=== PATIENT | female | born 1985 | race Hispanic/Latino ===

== ENCOUNTER 2025-05-13 21:14 | Inpatient (IN) | payer BC, SELFPAY ==
[2025-05-13] VITALS (22 sets, daily range): BP systolic 123–163; BP diastolic 70–115; BMI 39.7; BMI 37.7
[2025-05-13] MEDS: TRANDATE 10 MG IV (17:10)
[2025-05-13 17:17] LABS: Hematocrit 39.9 % (37.0-47.0); Hemoglobin 14.1 g/dL (12.0-16.0); Mean Corp Hgb Conc. 35.3 g/dL (33.0-37.0); Mean Corpuscular Volume 88.3 fL (81.0-99.0); Nucleated Red Blood Cells % 0 %; Platelet Count 284 10^3/uL (130-400); Red Cell Dist. Width 11.8 % (11.5-14.5)
--- NOTE | 2025-05-13 17:19 | EDRN ---
Assumed care of pt. in rm 18, pt. was unable to tell bartenders time of onset 'because I'm really not sure, a lot was going on'. pt. on telephone w/ currently, who clarified onset of symptoms began at 13:09 this afternoon. states he
witnessed pt. w/ sudden onset nausea/vomiting, rt. sided weakness to rt. upper extremity as well as decreased sensation to rt. side of face and to rt. arm. Pt. reports symptoms have somewhat resolved, but does endorse still feeling weak to rt. arm,
still endorses decreased sensation to rt. side of face and rt. arm and c/o headache. Pt. is hypertensive, does report hx. of same.
[2025-05-13 17:29] LABS: INR 0.88; PT 12.2 Sec (11.4-14.6)
[2025-05-13 17:30] LABS: APTT 23.3 Sec (23.4-35.0)
[2025-05-13 17:33] LABS: ALT (SGPT) 31 U/L (0-35); AST (SGOT) 26 U/L (14-36); Albumin 4.7 g/dl (3.5-5.0); Alkaline Phosphatase 97 U/L (38-126); Blood Urea Nitrogen 16 mg/dl (7-17); Calcium 9.6 mg/dl (8.4-10.2); Carbon Dioxide 28 mmol/L (22-30); Chloride 106 mmol/L (98-107); Glucose 101 mg/dl (70-99); Lipase 94 U/L (23-300); Potassium 3.9 mmol/L (3.5-5.1); Sodium 139 mmol/L (135-145); Total Protein 8.0 g/dl (6.3-8.2); eGFR > 60.00
--- NOTE | 2025-05-13 17:37 | ED.GENMED ---
History of Present Illness
General
Chief Complaint: Headache
Time Seen by Provider: 05/13/25 16:57
History of Present Illness
History of Present Illness:
39-year-old female with history of preeclampsia with last delivery in March 2024, presenting to the emergency department for headache and right sided weakness. Patient reports around 1 PM when she was out to [facility]. Notes weakness to the right upper
extremity and headache, also reports some tingling sensation to her right upper extremity. Denies any history of stroke. She reports since the preeclampsia issue, required emergent , and has since been on low-dose labetalol. She is
currently on 50 mg daily. Her blood pressure has overall been controlled. Denies chest pain or difficulty breathing. Denies fever. Denies recent fall or trauma. Denies additional acute medical complaints
Phy Exam
Physical Exam
Physical Exam:
General: Well-appearing, no clinical signs of dehydration, nontoxic and in no acute distress
HEENT: protecting airway
Neck: appears supple
CV: Normal heart rate, regular rhythm
Resp: No accessory muscle use, no increased work of breathing, lungs clear to auscultation bilaterally
Abd: No distention
Extremities: No deformities, no swelling
Neuro: alert, no focal neurologic deficit
: deferred
Rectal: deferred
Psych: Normal affect
Skin: Intact
NIH Stroke Score
Level of Consciousness: 0 - Alert
LOC questions: 0-Answers both correctly
LOC Commands: 0-Performs both correctly
Best Gaze: 0-Normal
Visual Montesinos: 0=Normal, no visual loss
Facial palsy: 0=Normal, symmetrical
Motor - Right Arm: 0=No drift 10 seconds
Motor - Left Arm: 0=No drift 10 seconds
Motor - Right Le-No drift 5 seconds
Motor - Left Le-No drift 5 seconds
Limb Ataxia: 0-Absent
Sensation: 1-Mild loss
Best Language: 0-No aphasia
Dysarthria: 0-Normal
Extinction and Inattention: 0-No abnormality
Total Score:: 1
Course
Orders/Labs/Results
Orders:
Orders
05/13/25 16:45
CT Head W/o Iv Contrast Urgent
Comment:
Reason For Exam: right sided weakness, arm and face
05/13/25 16:54
CT HEAD/NECK ANG STROKE ALERT Urgent
Reason For Exam: right sided weakness
05/13/25 17:04
Labetalol HCl [Trandate] 20 mg .ROUTE .STK-MED ONE
05/13/25 17:06
EKG [Electrocardiogram (*1)] Urgent
Reason for Study: TIA/Stroke
05/13/25 17:07
EKG- Treatment ONCE
05/13/25 17:09
Complete Blood Count/With Diff Urgent
Comprehensive Metabolic Panel Urgent
Lipase Urgent
PTT Urgent
Prothrombin Time Urgent
Labetalol HCl [Trandate] 10 mg IV NOW STA
05/13/25 17:53
Acetaminophen [Tylenol] 1,000 mg PO NOW STA
Ondansetron Injectable [Zofran] 4 mg IV NOW STA
05/13/25 18:03
Troponin I Urgent
Aspirin 325 mg PO NOW STA
Clopidogrel Bisulfate [Plavix] 300 mg PO NOW STA
Abnormal Lab Results
05/13/25
17:09
MCH 31.2 H pg
(27.0-31.0)
APTT 23.3 L Sec
(23.4-35.0)
Glucose 101 H mg/dl
(70-99)
05/13/25 17:09
05/13/25 17:09
Vital Signs
Initial and Last Documented VS:
Initial Vital Signs
Temp Pulse Resp BP Pulse Ox
97.9 F 77 20 163/104 98
05/13/25 16:42 05/13/25 16:42 05/13/25 16:42 05/13/25 16:42 05/13/25 16:42
Last Documented Vital Signs
Temp Pulse Resp BP Pulse Ox
97.9 F 75 22 138/83 95
05/13/25 16:42 05/13/25 19:00 05/13/25 19:00 05/13/25 19:00 05/13/25 19:00
MDM/Problems Addressed
MDM/Problems Addressed:
39-year-old female with prior history of preeclampsia presenting for headache, numbness to the right arm, weakness. Vital signs on arrival significant for hypertension
On exam patient is resting comfortably, no acute distress or discomfort. Patient initially evaluated by triage, reported symptoms this morning. Went patient brought back to examination room, noted that her symptoms started at 1 PM. For this
reason was called a stroke alert. On my assessment however, patient is hypertensive, with an NIH stroke scale of 1 for some mild decrease sensation to the right upper extremity in comparison to the left, however is globally intact. At this time no
present occasion for TNK, without any significant neurologic findings. Possible hypertensive emergency versus urgency. Plan for CT/CTA, laboratory analysis, labetalol for blood pressure control, EKG and reassess
18:00 -patient CTs are negative. Patient ambulated to the bathroom, slight limp to the right lower extremity, however on persistent reevaluations, no drift to the right lower extremity. Sensation remains intact to the right lower extremity.
Slight subjective weakness of the right upper extremity now in comparison to the left, with NIH stroke scale being a 2. Patient currently out of the window for TNK. Blood pressure is improved after labetalol. Will aspirin and Plavix load and
admit for MRI
18:45 -on reassessment, patient reports that her symptoms are feeling slightly improved. Continued plan for admission
*Pulse Oximetry
SaO2: 98
Oxygen Mode of Delivery: Room air
Patient hypoxic: no
*Critical Care Note
Total Time (30-74mins, 75-104mins- exclusive of procedures): Not Applicable
ED Attending Note
-
Portions of this chart may have been created with voice recognition software.� Occasional wrong word or��sound alike� substitutions may have occurred due to the inherent limitations of voice recognition software.
Discharge Plan
Departure
Prescriptions:
No Action
labetalol 100 mg Tablet
50 mg PO BID
Referrals:
UNKNOWN - PT DOES,NOT KNOW [Family Provider]
Interventions
Interventions:
*Risk Screen - Suicide Last Done: 05/13/25 17:25
*General Assessment Last Done: 05/13/25 17:25
*Neglect/Abuse Screening Last Done: 05/13/25 17:25
*ED COVID-19 Vaccine History Last Done: 05/13/25 17:25
ED- Neurological Assessment Last Done: 05/13/25 18:31
Discharge Date and Time
Print Language: GEORGIAN
--- NOTE | 2025-05-13 18:00 | EDRN ---
Addendum entered by Kasey Weller RN 05/13/25 18:23:
Care team aware of pt.'s c/o limping and weakness; however, pt. remains outside window for TNK administration, especially as pt. had originally told window trimmer that symptoms began at 5 AM this morning, yet has different story. After
describes symptoms beginning at 1309, pt. believes this is actually true, and states 'a lot was going on this morning I felt nauseas and threw up, but my is right, my weakness didn't start until after 1 pm'
Original Note:
When pt. stood up to use restroom w/ ECT, pt. limping on rt. leg, telling ECT 'it feels weak'.
[2025-05-13] MEDS: TYLENOL 1000 MG PO (18:15)
[2025-05-13] MEDS: ASPIRIN 325 MG PO (18:15)
[2025-05-13] MEDS: PLAVIX 300 MG PO (18:16)
[2025-05-13 18:36] LABS: Troponin I < 0.012 ng/ml
--- NOTE | 2025-05-13 20:33 | HPS.HSE ---
Family Physician
-
Family Physician: NOT KNOW UNKNOWN - PT DOES
Chief Complaint
-
headache, right arm weakness and numbness
History of Present Illness
Ms. Demarco Gaytan is a 39 yo woman with hx preeclampsia (delivered March 2024), now on low dose labetalol, presents to the ER with headache and right sided weakness.
Symptoms started at 1PM this afternoon, when patient was out to [facility]. She describes significant posterior headache with nausea and vomiting. She reported some blurred vision at the time. She also had new right arm weakness and came to the ER
where then felt right leg is weak.
Currently weakness persists and she has decreased sensation right leg. She has very mild headache and nausea resolved.
She had mild chest tightness that is now resolved. No shortness of breath. No abdominal pain. No LE swelling. NO black or bloody stools.
Medical History
Past Medical History
Past Medical History: Reports Other (pre-eclampsia )
Past Surgical History: Reports
Social History
Tobacco: Non-smoker
Alcohol: Occasional
Drug: None
Family History
Family History: Not pertinent
Allergies / Home Medications
Allergies reflects when Allergies were last updated in [employer].
Home Medications with original date entered in [employer]
Allergy/Medication List:
Allergies
Allergy/AdvReac Type Severity Reaction Status Date / Time
No Known Allergies Allergy Verified 05/13/25 16:42
Home Medications
labetalol 100 mg tablet 50 mg PO BID 05/13/25
Review of Systems
-
History Source: Patient
A 12 point ROS was completed and negative except as noted: Yes
Physical Exam
Vital Signs
Vital Signs
Temp Pulse Resp BP Pulse Ox
97.9 F 75 22 138/83 95
05/13/25 16:42 05/13/25 19:00 05/13/25 19:00 05/13/25 19:00 05/13/25 19:00
Physical Exam
General: No Apparent Distress
HEENT: PERRLA
Respiratory: Clear; No Wheezes
Cardiac: S1/S2 and Regular Rhythm
GI: Soft and Non Tender
Musculoskeletal: No Edema
Skin: Warm and Dry; No Rash
Neuro: AO x 3 and Other (APRIL, EOMI, no facial asymmetry, RUE pronator drift presents; RLE with 3/5 strength and decreased sensation; speech clear)
Psych: Calm
Laboratory Results
-
05/13/25 17:09
05/13/25 17:09
Laboratory Results
PT 12.2 Sec (11.4-14.6) 05/13/25 17:09
INR 0.88 05/13/25 17:09
APTT 23.3 Sec (23.4-35.0) L 05/13/25 17:09
Total Bilirubin 0.4 mg/dl (0.2-1.3) 05/13/25 17:09
AST 26 U/L (14-36) 05/13/25 17:09
ALT 31 U/L (0-35) 05/13/25 17:09
Alkaline Phosphatase 97 U/L (38-126) 05/13/25 17:09
Troponin I < 0.012 ng/ml 05/13/25 18:03
Lipase 94 U/L (23-300) 05/13/25 17:09
Data Reviewed
-
Diagnostic Radiology: Report Reviewed by me
Lab Data: Labs Reviewed by me
Impression/Plan
-
Ms. Deamrco Gaytan is a 39 yo woman with hx preeclampsia (delivered March 2024), now on low dose labetalol, presents to the ER with headache and right sided weakness.
Triage VS: T 97.9, P 77, RR 20, BP 163/104, SpO2 98%
LABS: WBC 6.5, Hg 14.1, PLT 284, INR 0.88, Na 139, K+ 3.9, Cl 106, CO2 28, BUN 16, Cr 0.8, Glucose 101, Ca 9.6, T. Bili 0.4, AST 26, ALT 31, Alk Phos 97
Trop < 0.[address]
IMPRESSION:
No evidence of acute intracranial abnormality.
HEAD CTA
IMPRESSION: No significant arterial narrowing. No findings to suggest arterial dissection.
MAR: Aspirin, Plavix, Labetalol, Zofran
Right Sided Weakness and Numbness
Headache with Nausea and Vomiting
-differential includes acute migraine versus CVA versus MS versus other
-headache now largely resolved, she remains with weakness and decreased sensation on right side
-admit to telemetry
-s/p aspirin and plavix loading in the ER, continue asa 81 and Plavix 75mg daily
-neuro checks
-Neurology consult
-MRI with and without contrast
-hold HEEL SEAM RUBBER Labetalol to allow for permissive HTN x 24 hours
-if patient with stroke, will need echo with bubble study and possible long-term cardiac monitoring
Preeclampsia and hypertension post delivery
-resume HEEL SEAM RUBBER Labetalol tomorrow
DVT PPx Lovenox subQ
FULL CODE
76 minutes spent on patient care
[2025-05-14] VITALS (8 sets, daily range): BP systolic 118–133; BP diastolic 55–103; PULSE 77–81; O2SAT 95–97
[2025-05-14 07:32] LABS: Hematocrit 38.4 % (37.0-47.0); Hemoglobin 13.2 g/dL (12.0-16.0); Mean Corp Hgb Conc. 34.4 g/dL (33.0-37.0); Mean Corpuscular Volume 88.9 fL (81.0-99.0); Platelet Count 272 10^3/uL (130-400); Red Cell Dist. Width 11.8 % (11.5-14.5)
[2025-05-14 07:42] LABS: Blood Urea Nitrogen 13 mg/dl (7-17); Calcium 8.9 mg/dl (8.4-10.2); Carbon Dioxide 22 mmol/L (22-30); Chloride 108 mmol/L (98-107); Estimated Creatinine Clearance > 125 ml/min; Glucose 95 mg/dl (70-99); HDL Cholesterol 41 mg/dl; LDL Cholesterol, Calculated 85 mg/dl; Magnesium 2.1 mg/dl (1.6-2.3); Potassium 3.9 mmol/L (3.5-5.1); Sodium 139 mmol/L (135-145); Very Low Density Lipoprotein 17 mg/dl (0-30); eGFR > 60.00
[2025-05-14 07:53] LABS: Troponin I < 0.012 ng/ml
[2025-05-14] MEDS: LOW STRENGTH ASPIRIN 81 MG PO (08:40)
[2025-05-14] MEDS: PLAVIX 75 MG PO (08:40)
[2025-05-14 10:26] LABS: Glycohemoglobin (HgbA1c) 5.1 % (4.0-5.6)
--- NOTE | 2025-05-14 11:30 | PTOTSP ---
Speech therapy
Presentation: Patient was oriented and cooperative. Patient's speech and language was WNL during conversation with BIOINFORMATICS RESEARCH TECHNICIAN. Patient denied any communication deficits.
Swallowing function: Patient was observed with several bites of regular consistency solids and sips of thin liquids in which patient appeared to tolerate as he did not exhibit any overt clinical s/sx of aspiration or difficulty. Patient denied any
dysphagia complaints. 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
Of note, patient reported slight discomfort on the right side jaw when opening her mouth.
Recommendations:
1) reg/ thin
2) aspiration precautions
3) medications as tolerated
4) consider OT tx
5) assistance with PO given poor right sided coordination with feeding
Plan: BIOINFORMATICS RESEARCH TECHNICIAN will continue to follow to ensure tolerance; pending hospitalization.
--- NOTE | 2025-05-14 11:45 | CON.NEURO ---
Addendum entered and electronically signed by Isaías Sawant MD 05/14/25 18:20:
stopping ASA and plavix for now
if unremarkable would start baby aspirin and Lipitor when she is done
Original Note:
Neuro Assessment/Plan
Assessment
MRI brain imgs rev'd, normal
CTA h/n imgs rev'd, normal
39 year old woman with h/o pre eclampsia, right sided symptoms which have almost resolved. exam with right sided deficits this morning resolved ~24 hrs
TIA. Initial consideration that this is all hypertensive urgency or complicated migraine has been ruled out as these have both resolved and her deficits persist. MS considered less likely due to rapid improvement
etiology would not be the typical vascular risk factors
will order folate, b12, ESR/CRP, Ferritin,
cardiology consulted for AILYN. she will skip ILR and get apple watch
CTA torso to rule out emboli
for now agree ASA 81, Plavix. with LDL of 85, would add Lipitor 20 when she is done .
Consultation
Order
Date of Consultation: 05/14/25
Requesting Provider: Rea Davenport
Reason for Consult: right arm weakness
Subjective/Objective
Subjective Data
Date of Service: May 14, 2025
from h&p:
Ms. Demarco Gaytan is a 39 yo woman with hx preeclampsia (delivered March 2024), now on low dose labetalol, presents to the ER with headache and right sided weakness.
Symptoms started at 1PM this afternoon, when patient was out to [facility]. She describes significant posterior headache with nausea and vomiting. She reported some blurred vision at the time. She also had new right arm weakness and came to the ER
where then felt right leg is weak.
Currently weakness persists and she has decreased sensation right leg. She has very mild headache and nausea resolved.
She had mild chest tightness that is now resolved. No shortness of breath. No abdominal pain. No LE swelling. NO black or bloody stools.
In the ED, initial BP 163/104, has since normalized. Today patient reports substantially improved. Headache is resolved.
Objective Data
Vital Signs
Temp Pulse Resp BP Pulse Ox
36.8 C 67 18 118/72 95
05/14/25 07:07 05/14/25 07:07 05/14/25 07:07 05/14/25 07:07 05/14/25 07:07
Lab Results
05/14/25 06:34
05/14/25 06:34
PT 12.2 Sec (11.4-14.6) 05/13/25 17:09
INR 0.88 05/13/25 17:09
APTT 23.3 Sec (23.4-35.0) L 05/13/25 17:09
Sodium 139 mmol/L (135-145) 05/14/25 06:34
Potassium 3.9 mmol/L (3.5-5.1) 05/14/25 06:34
BUN 13 mg/dl (7-17) 05/14/25 06:34
Glucose 95 mg/dl (70-99) 05/14/25 06:34
Calcium 8.9 mg/dl (8.4-10.2) 05/14/25 06:34
LDL Cholesterol, Calc 85 mg/dl 05/14/25 06:34
Patient Allergies
No Known Allergies Allergy (Verified 05/13/25 16:42)
Physical Exam
-
AAOx3, speech clear, language intact
VFF, EOMI, face symmetric
RUE/LE 5-/5, LUE/LE full strength, right pronator/down drift
sensation intact to touch/temp
DTR 1+ symmetric
Medications
-
Active Medications
Generic Name Dose Route Start Last Admin
Trade Name Freq PRN Reason Stop Dose Admin
Acetaminophen 650 mg 05/13/25 22:08
Acetaminophen 650 Mg Rectal Suppository RECTAL 06/10/25 22:07
Q4HPRN PRN
SAN, mild pain, or temp >100.4F
Acetaminophen 650 mg 05/13/25 22:08
Acetaminophen 325 Mg Tablet PO 06/10/25 22:07
Q4HPRN PRN
SAN, mild pain, or temp >100.4F
Aspirin 81 mg 05/14/25 08:00 05/14/25 08:40
Aspirin 81 Mg Chewable Tablet PO 06/11/25 07:59 81 mg
DAILY MEGAN Administration
Clopidogrel Bisulfate 75 mg 05/14/25 08:00 05/14/25 08:40
Clopidogrel 75 Mg Tablet PO 06/11/25 07:59 75 mg
DAILY MEGAN Administration
Enoxaparin Sodium 40 mg 05/14/25 18:00
Enoxaparin Sodium 40 Mg/0.4 Ml Syringe SC 06/11/25 17:59
QPM MEGAN
Sodium Chloride 0 flush 05/13/25 23:00
Sodium Chloride 0.9% (Flush) Syringe IV 06/10/25 22:59
PER PROTOCOL MEGAN
Home Medications
�Medication �Instructions �Recorded
labetalol 100 mg tablet 50 mg PO BID Blood Pressure 05/13/25
propylene glycol 0.6 % eye drops 1 drp ophthalmic (eye) BID PRN dry 05/14/25
(Systane Complete) eye
--- NOTE | 2025-05-14 11:49 | W.PN.HOSP.TC ---
Addendum entered and electronically signed by Alisa Camarillo MD 05/14/25 13:55:
Discussed with neurology
Vasculitis panel ordered
AILYN
Blood cultures ordered
D/W Cards, Nepghrology and neuro
Original Note:
Today's Communication/Plan
-
MRI Awaited
Assessment / Plan
Assessment / Plan
39-year-old female who has a history of preeclampsia and delivered in March 2024 now on labetalol presented to the hospital with right-sided weakness and headache. Symptoms started 1 PM when she was out to [facility]. Also had some blurry vision at that
time.
CTA of the head and neck-no significant artery narrowing
EKG sinus rhythm, QTc 485
CVS: S1-S2 normal
Chest: CTA B/L
Abdomen: Soft, NT
Extremities: No edema
STAFF SUBMARINE WARFARE OFFICER: Non focal exam
# Right-sided weakness and numbness
Headache with nausea and vomiting
Migraine versus CVA
MRI of the brain with and without contrast
If neg will need C spine imaging as OP
Neurology evaluation
# History of preeclampsia in hypertension postdelivery in 2023
Was on a high dose Labetalol which is being weaned. pt on this dose for 1 month now.
Now Labetalol 50 mg twice daily as outpatient
? needs secondary hypertension workup
Nephrology evaluation pending
# Carpel tunnel syndrome on right
# History of asthma NOS
# DVT prophylaxis-Lovenox
# Full code
D/W PT
D/W at bed side
D/W renal
D/W RN
Part of this note was created using voice recognition system. Occasional wrong word or��sound alike� substitutions may have inadvertently occurred due to the inherent limitations of voice recognition software. If noted kindly bring it to my
attention for correction.
Anticipated Discharge: Within 24 hours
Subjective/Interval History
-
Date of Service: May 14, 2025
Objective Data
-
Labs:
Laboratory Results
05/14/25
06:34
WBC 4.6 L
Hgb 13.2
Hct 38.4
Plt Count 272
Sodium 139
Potassium 3.9
Chloride 108 H
Carbon Dioxide 22
BUN 13
Creatinine 0.6
Glucose 95
Calcium 8.9
Vital Signs:
Vital Signs
Temp Pulse Resp BP Pulse Ox
98.3 F 67 18 118/72 95
05/14/25 07:07 05/14/25 07:07 05/14/25 07:07 05/14/25 07:07 05/14/25 07:07
[2025-05-14] MEDS: REFRESH EYE DROPS (PF) 1 DROPS OPHTH (12:08)
--- NOTE | 2025-05-14 12:11 | W.CON.NEPH ---
Addendum entered and electronically signed by Foreign Floyd MD 05/14/25 12:45:
Agree with resident note with following addendum
Persistent hypertension since preeclampsia March 2024. Weaning of labetalol as an outpatient. Home blood pressures by her report in the 120 systolic range. However, she checks her blood pressure in various positions, laying down or sitting with no
wait time.
Most recently her primary suggested labetalol 25 mg twice daily which the patient has not yet started.
Came to the emergency room because of right-sided headache with especially nausea prompting the visit. Reported right hand weakness but does admit that she has right hand symptoms chronically from carpal tunnel. Noted to be hypertensive on
admission but responded well to intravenous labetalol. Currently blood pressure is normal
There is no family history of stroke or diabetes
Patient has no history of stroke or diabetes or hyperlipidemia no she reports that her primary has been looking at her pancreas and liver.
Exam was nonfocal
Brain MRI reading pending
CT head 05/13/2025 no acute disease
Head and neck CTA 05/13/2025 no acute disease
EKG 05/13/2025 by my reading normal sinus rhythm
Impression
Hypertensive urgency
headache
Right-sided weakness and numbness, resolved
nausea
Primary hypertension
Right carpel tunnel syndrome
History of pre-eclampsia
Plan
Neurological work-up per primary and neurology.
Renal function normal and at baseline.
Continue labetalol
Blood pressure technique discussed with patient and
Secondary workup could be performed as an outpatient
Use of antiplatelet agents per primary team
Original Note:
Consultation
-
Date/Time Consultation Requested: 05-14-25
Date/Time Consultation Performed: 05-14-25
Requesting Provider: Dr. Alisa Camarillo
Performing Provider: Dr. Foreign Floyd
Reason for Consultation: Hypertensive emergency/urgency
Medical History
-
Chief Complaint: Acute headache, nausea, R hand weakness, R shoulder+arm tightness
History of Present Illness:
Demarco Gaytan, 39-year-old with history notable for pre-eclampsia with severe features necessitating emergency at 31 weeks gestation in March 2024, is admitted for right-sided weakness, headache and nausea. She developed pre-eclampsia in her
second trimester of her fourth , which was in 2023. She was started on labetalol, which was then escalated to its maximum dose. She developed severe features, and blood pressure continued to remain elevated on max dose labetalol. Briefly on
a second antihypertensive, and required magnesium during the twice. performed at 31 weeks as a result. She has required labetalol post- and has been working with her primary to slowly come off it.
She has been stressed over the past 2 weeks because her son has an ear infection; often staying up late. She was in her usual state of health until she was coming home from a restaurant, when she developed right-sided occipital headache, which then
progressed globally. Developed nausea and noted right hand weakness, arm and shoulder tightness. The hand weakness felt slightly unusual from the weakness she has intermittently from her known carpal tunnel, and the arm+shoulder symptoms were felt
to be slightly off from her chronic shoulder tightness. Came to the hospital and is undergoing neurological work-up. She has headaches intermittently, but they do not last long. No history of a migraine disorder. Nephrology is consulted to comment
on her antihypertensive regimen.
Past Medical History
Past Medical History: HTN (preeclampsia with severe features 2023; primary hypertension subsequently) and Other (obesity; R carpal tunnel; chronic R shoulder tightness/pain)
Past Surgical History:
Social History
Tobacco: Non-Smoker
Alcohol: Occasional
Drug: None
Personal:
Living: With Family
Family History
Family History: Hypertension (Mother) and Other (Mother - CKD)
Allergies / Home Medications
Allergy/AdvReac Type Severity Reaction Status Date / Time
No Known Allergies Allergy Verified 05/13/25 16:42
�Medication �Instructions �Recorded �Confirmed �Type
labetalol 100 mg tablet 50 mg PO BID Blood Pressure 05/13/25 05/13/25 History
propylene glycol 0.6 % eye drops 1 drp ophthalmic (eye) BID PRN dry 05/14/25 05/14/25 History
(Systane Complete) eye
Review of Systems
-
History Source: Patient
All other systems: Negative unless noted
Constitutional: No Symptoms
EENT: No Symptoms
Respiratory: No Symptoms
Cardiac: No Symptoms
Abdomen/GI: No Symptoms
: No Symptoms
Musculoskeletal: Other (R hand mild weakness (at baseline for her carpal tunnel))
Physical Exam
Vital Signs
Vital Signs
Temp Pulse Resp BP Pulse Ox
98.9 F 81 16 131/103 97
05/14/25 11:09 05/14/25 11:09 05/14/25 11:09 05/14/25 11:09 05/14/25 11:09
Lab Results
WBC 4.6 10^3/uL (4.8-10.8) L 05/14/25 06:34
RBC 4.32 10^6/uL (4.20-5.40) 05/14/25 06:34
Hgb 13.2 g/dL (12.0-16.0) 05/14/25 06:34
Hct 38.4 % (37.0-47.0) 05/14/25 06:34
Plt Count 272 10^3/uL (130-400) 05/14/25 06:34
Sodium 139 mmol/L (135-145) 05/14/25 06:34
Potassium 3.9 mmol/L (3.5-5.1) 05/14/25 06:34
Chloride 108 mmol/L (98-107) H 05/14/25 06:34
Carbon Dioxide 22 mmol/L (22-30) 05/14/25 06:34
BUN 13 mg/dl (7-17) 05/14/25 06:34
Creatinine 0.6 mg/dL (0.6-1.0) 05/14/25 06:34
eGFR > 60.00 05/14/25 06:34
Glucose 95 mg/dl (70-99) 05/14/25 06:34
Calcium 8.9 mg/dl (8.4-10.2) 05/14/25 06:34
Albumin 4.7 g/dl (3.5-5.0) 05/13/25 17:09
Physical Exam
HEENT: Anicteric, Conjunctivae Clear, Facial Symmetry, Neck Supple and No Thyromegaly
Respiratory: Clear and Nonlabored Respirations
Cardiac: S1/S2 and Regular Rate/Rhythm
Abdomen: Nontender and Nondistended
Genito-urinary: No Costovertebral Tender
Musculoskeletal: No Clubbing, No Cyanosis and No Edema
Skin: No Rash and No Bruising
Neuro: Other (Right hand strength very mildly diminished)
Psych: Mood/afflect pleasant and Insight/judgement good
Data Reviewed
-
CT Scan: Image Personally Visualized and interpreted and Report Reviewed by me
MRI: Image Personally Visualized and interpreted
Labs: Labs Reviewed by me, Discussed with Patient and Discussed with Family
Assessment/Plan
-
Impression
Hypertensive urgency
Acute headache
Right-sided weakness and numbness
Acute nausea
Primary hypertension
Right carpel tunnel syndrome
History of pre-eclampsia with severe features
History of asthma
Plan
Neurological work-up per primary and neurology.
Renal function normal and at baseline.
Blood pressures have remained mildly elevated in the hospital.
Received 10 mg IV labetalol in the emergency; not anything PO since.
Can continue labetalol following discharge from a renal standpoint.
Follow blood pressures at home.
Defer secondary hypertension work-up to as an outpatient.
[2025-05-14 13:29] LABS: Ferritin 21.1 ng/ml (6.24-137)
[2025-05-14 14:00] LABS: Folate 9.3 ng/ml (2.76-20); Vitamin B12 567 pg/ml (239-931)
[2025-05-14 14:11] LABS: C-Reactive Protein < 5.00 mg/L (0.0-10.00)
[2025-05-14 17:29] LABS: HCG, Urine Qualitative Screen Negative
--- NOTE | 2025-05-14 19:31 | CON.CAR ---
Consultation
Consultation Request
Date/Time Consultation Requested: 05/14/2025 13: 00
Date/Time Consultation Performed: 05/14/2025 19: 00
Requesting Provider: Savana
Performing Provider: Roger
Reason for Consultation: Consult for AILYN
Medical History
-
Chief Complaint: Headache and right-sided weakness
History of Present Illness:
Demarco has a history of preeclampsia with last delivery in March 2024 on chronic labetalol. She presented for headache and right-sided weakness. She had weakness of right upper extremity and headache with tingling sensation in right upper extremity.
She also had chest pain which resolved. She was seen by neurology and AILYN was requested
Past Medical History
Past Medical History: HTN (Preeclampsia with hypertension on chronic labetalol)
Past Surgical History:
Social History
Tobacco: Non-Smoker
Alcohol: Occasional
Drug: None
Personal:
Living: With Family
Employment: Employed
Family History
Family History: Other (There is no family history of premature coronary artery disease)
Allergies / Home Medications
Allergy/AdvReac Type Severity Reaction Status Date / Time
No Known Allergies Allergy Verified 05/13/25 16:42
�Medication �Instructions �Recorded �Confirmed �Type
labetalol 100 mg tablet 50 mg PO BID Blood Pressure 05/13/25 05/13/25 History
propylene glycol 0.6 % eye drops 1 drp ophthalmic (eye) BID PRN dry 05/14/25 05/14/25 History
(Systane Complete) eye
Review of Systems
-
History Source: Patient
All other systems: Negative unless noted
Constitutional: No Symptoms
EENT: No Symptoms
Respiratory: No Symptoms
Cardiac: Chest Pain
Abdomen/GI: No Symptoms
: No Symptoms
Musculoskeletal: No Symptoms
Skin: No Symptoms
Neurological: Headache and Weakness (Right upper extremity weakness)
Endocrine: No Symptoms
Hematologic/Lymphatic: No Symptoms
Physical Exam
Vital Signs
Temp Pulse Resp BP Pulse Ox
98.3 F 75 18 128/79 97
05/14/25 15:47 05/14/25 15:47 05/14/25 15:47 05/14/25 15:47 05/14/25 15:47
General: Well developed, well nourished in NAD.
Neck: Supple, no JVD, HJR, carotids +2 B/L, no bruits bilaterally.
Heart: Non displaced PMI, RRR, no murmurs, No S3, S4, no rubs.
Lungs: Clear to auscultation bilaterally, no wheeze, rhonchi, rubs bilaterally,
normal expiratory phase.
Abdomen: Normal bowel sounds, soft, non-tender, non-distended.
Extremities: No clubbing, cyanosis or edema bilaterally.
Neuro: Grossly nonfocal, awake, alert and oriented x3.
Lab Results
05/14/25 06:34
05/14/25 06:34
Troponin I < 0.012 ng/ml 05/14/25 06:34
Impression / Plan
-
Impression:
Right-sided weakness which has resolved
Chest pain which has resolved
History of preeclampsia with hypertension
Plan:
Patient presents with right-sided weakness. Neurology has consulted cardiology for AILYN to exclude cardiac etiology
I have explained risk and benefits in detail with patient and she agrees to proceed
Neurology is planning baby aspirin and Lipitor when she is done breast-feeding if AILYN is unremarkable
Data Reviewed
-
EKG: Tracing Personally Visualized and interpreted
Radiology: Report Reviewed by me
MRI: Report Reviewed by me
Medical Tests (Nuc Med, Echo etc): Report Reviewed by me
Labs: Labs Reviewed by me
Old Records: Reviewed
[2025-05-15 03:20] VITALS: BP 112/81
[2025-05-15 07:00] VITALS: BP 141/96
--- NOTE | 2025-05-15 12:42 | W.PN.CARDCBS ---
Today's Communication / Plan
-
Transesophageal echocardiogram with small hemodynamically insignificant PFO
Defer antiplatelet therapy decisions to neurology
Treatment of suspected unmasked hypertension following preeclampsia last year
Recommend outpatient sleep study
Will sign off, recall if needed
Impression / Plan
-
Impression:
Right-sided weakness,resolved
Headaches, resolved
Nausea/vomiting, resolved
Atypical chest discomfort, resolved
Hypertensive urgency [history of preeclampsia placed on labetalol following her last 1 year ago which was being slowly weaned off by her primary; likely has underlying essential hypertension]
Very small PFO by AILYN 05/15/2025
Plan:
Patient presented with headaches, nausea vomiting and right sided weakness with concern for TIA.
-Neurology consulted
-MRI of the brain negative for stroke [partially empty sella, nonspecific], CT of the head with no mass/infarct/normal sinuses, CTA of the head and neck with no significant arterial narrowing/dissection or abnormality.
-AILYN today with normal biventricular size and systolic function and no valvular pathology. No left atrial appendage thrombus. She does have a small PFO not detected by color-flow Doppler with positive bubble study x 2
-No clear role for PFO closure at this time.
-Defer antiplatelet therapy to neurology
- Lipid profile this admission: Total cholesterol 143, triglycerides 85, LDL 85, HDL 41. TSH is within normal limits. Will defer need for statin to neurology
Hypertension with prior history of preeclampsia
-Would favor restarting antihypertensive therapy; labetalol is reasonable as patient is still breast-feeding.
-Twelve-lead EKG sinus rhythm, normal EKG
-Troponin undetectable x 2
-Discussed low-salt diet and weight management. She has gained weight over the last few years with 4 pregnancies the last only a year ago.
-Goal normotension
Suspect sleep apnea
-Recommend outpatient sleep study evaluation
Will sign off, recall if needed
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
Subjective
Date of Service: May 15, 2025
Patient seen and examined prior to transesophageal echocardiogram. Resolved headache, nausea/vomiting and no abdominal pain. No chest pain. No shortness of breath. No complications from procedure and discussed findings
Objective
Labs:
05/14/25 06:34
05/14/25 06:34
Labs
Hgb 13.2 g/dL (12.0-16.0) 05/14/25 06:34
Hct 38.4 % (37.0-47.0) 05/14/25 06:34
Plt Count 272 10^3/uL (130-400) 05/14/25 06:34
PT 12.2 Sec (11.4-14.6) 05/13/25 17:09
INR 0.88 05/13/25 17:09
APTT 23.3 Sec (23.4-35.0) L 05/13/25 17:09
Sodium 139 mmol/L (135-145) 05/14/25 06:34
Potassium 3.9 mmol/L (3.5-5.1) 05/14/25 06:34
BUN 13 mg/dl (7-17) 05/14/25 06:34
Creatinine 0.6 mg/dL (0.6-1.0) 05/14/25 06:34
Glucose 95 mg/dl (70-99) 05/14/25 06:34
Troponins
05/13/25 05/14/25
18:03 06:34
Troponin I < 0.012 < 0.012
Vital Signs and I&O:
Vital Signs
Temp Pulse Resp BP Pulse Ox
98.1 F 85 18 141/96 97
05/15/25 07:00 05/15/25 07:00 05/15/25 07:00 05/15/25 07:00 05/15/25 07:00
Vital Signs
Temp Pulse Resp BP Pulse Ox
98.1 F 85 18 141/96 97
05/15/25 07:00 05/15/25 07:00 05/15/25 07:00 05/15/25 07:00 05/15/25 07:00
Intake & Output
05/13/25 05/14/25 05/15/25 05/16/25
06:59 06:59 06:59 06:59
Intake Total 960 / 960
Balance 960 / 960
Physical Exam
Physical Exam
General: No acute distress, AAOX3
Neck: Negative JVD
Heart: Regular, positive S1/S2, No murmur
Lungs: CTA b/l, negative wheezes/rales/rhonchi
Abd: Positive BS, NT/ND, neg rebound/rigidity/guarding
Ext: no edema
Neuro: nonfocal
[2025-05-15 12:50] VITALS: BP 123/81
--- NOTE | 2025-05-15 12:54 | W.PN.NEURO.1 ---
Today's Communication / Plan
-
Await testing results
for now agree ASA 81, Plavix
Will need to discontinue clopidogrel and aspirin over time
Neuro Assessment/Plan
Assessment
MRI brain imgs rev'd, normal
CTA h/n imgs rev'd, normal
39 year old woman with past medical history including pre eclampsia, who developed right sided symptoms which have almost resolved. exam with right sided deficits resolved ~24 hrs
TIA less likely based on age and absence of additional risk factors. Most likely due to hypertensive urgency.
Plan
Await testing results
for now agree ASA 81, Plavix
Will need to discontinue clopidogrel and aspirin over time
Will follow as outpatient
Subjective/Objective
Subjective Data
Date of Service: May 15, 2025
Objective Data
Vital Signs
Temp Pulse Resp BP Pulse Ox
36.7 C 85 18 141/96 97
05/15/25 07:00 05/15/25 07:00 05/15/25 07:00 05/15/25 07:00 05/15/25 07:00
Lab Results
05/14/25 06:34
05/14/25 06:34
PT 12.2 Sec (11.4-14.6) 05/13/25 17:09
INR 0.88 05/13/25 17:09
APTT 23.3 Sec (23.4-35.0) L 05/13/25 17:09
Sodium 139 mmol/L (135-145) 05/14/25 06:34
Potassium 3.9 mmol/L (3.5-5.1) 05/14/25 06:34
BUN 13 mg/dl (7-17) 05/14/25 06:34
Glucose 95 mg/dl (70-99) 05/14/25 06:34
Calcium 8.9 mg/dl (8.4-10.2) 05/14/25 06:34
LDL Cholesterol, Calc 85 mg/dl 05/14/25 06:34
Vitamin B12 567 pg/ml (026-034) 05/14/25 06:34
Patient Allergies
No Known Allergies Allergy (Verified 05/13/25 16:42)
--- NOTE | 2025-05-15 14:57 | W.PN.HOSP.TC ---
Addendum entered and electronically signed by Alisa Camarillo MD 05/15/25 16:31:
Patient was called back on her cell phone and discussed about getting a sleep study done as outpatient. To follow-up with primary physician to give referral
Original Note:
Today's Communication/Plan
-
Discharge
Assessment / Plan
Assessment / Plan
39-year-old female who has a history of preeclampsia and delivered in March 2024 now on labetalol presented to the hospital with right-sided weakness and headache. Symptoms started 1 PM when she was out to [facility]. Also had some blurry vision at that
time.
CTA of the head and neck-no significant artery narrowing
EKG sinus rhythm, QTc 485
CVS: S1-S2 normal
Chest: CTA B/L
Abdomen: Soft, NT
Extremities: No edema
DOORKEEPER: Non focal exam
# Right-sided weakness and numbness
Headache with nausea and vomiting
MRI of the brain with and without contrast
Discussed about C-spine imaging as outpatient
Patient does not have any further symptoms at present
AILYN verbal report very small insignificant PFO
Patient to follow-up with neurology as outpatient to start aspirin/statin if needed as outpatient once she stops breast-feeding.
# History of preeclampsia in hypertension postdelivery in 2023
Was on a high dose Labetalol which is being weaned. pt on this dose for 1 month now.
Now Labetalol 50 mg twice daily as outpatient
Continue labetalol and patient to follow-up with Dr. Floyd as outpatient
# Carpel tunnel syndrome on right-she requested-information given for [id number]
# History of asthma NOS
# DVT prophylaxis-Lovenox
# Full code
D/W at bed side
Discussed with cardiology
Discussed with neurology. Okay for discharge, no new recommendations
Patient is aware that vasculitis panel is pending however sed rate is low hepatic steatosis discussed with patient
-She is aware regarding weight loss and also follow-up on this.
She gained weight after pregnancies, will work on losing weight.
Total discharge coordination time more than 31-minutes
Part of this note was created using voice recognition system. Occasional wrong word or��sound alike� substitutions may have inadvertently occurred due to the inherent limitations of voice recognition software. If noted kindly bring it to my
attention for correction.
Anticipated Discharge: Today
Subjective/Interval History
-
Date of Service: May 15, 2025
Objective Data
-
Vital Signs:
Vital Signs
Temp Pulse Resp BP Pulse Ox
97.4 F 76 18 123/81 93
05/15/25 12:50 05/15/25 12:50 05/15/25 12:50 05/15/25 12:50 05/15/25 12:50
I&O
05/14/25 05/15/25 05/16/25
06:59 06:59 06:59
Intake Total 960 / 960
Balance 960 / 960
--- NOTE | 2025-05-15 15:02 | W.DS.TRANS ---
Addendum entered and electronically signed by Alisa Camarillo MD 05/15/25 16:33:
Dictation- [id number]
Original Note:
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
-
Discharge Instructions:
Discharge Diagnosis/Procedures Transient right-sided weakness and numbness
Very small PFO
Hypertension
Carpal tunnel syndrome on right
Fatty liver
Diet Low Fat
Activity As tolerated
Driving Restrictions As prior to admission
Instructions:
Stand-Alone Forms:
Changes to Home Medications: No
Discharge Medications:
DC Medications w/original date entered in [employer]
labetalol 100 mg tablet 50 mg PO BID Blood Pressure 05/13/25
propylene glycol 0.6 % eye drops (Systane Complete) 1 drp ophthalmic (eye) BID PRN dry eye 05/14/25
Home Medication Changes
Pending Results: Yes (Vasculitis panel, final blood cultures)
[2025-05-15 15:16] VITALS: BP 132/88
--- NOTE | 2025-05-15 15:24 | CM ---
Alert awake oriented patient who lives with her Tristen in a 1 story home with 4 steps to enter and 5 steps to bed/bathroom. She is independent in activates of daily living.She does drive .Offered VN she declined need.
No VN in past . No SNF
Pharmacy [place] [id number] Antelmo Pritchett
PLAN Home no needs
[2025-05-15] MEDS: REFRESH EYE DROPS (PF) 1 DROPS OPHTH (15:55)
--- NOTE | 2025-05-15 16:49 | W.PN.NEPH.PH ---
Today's Communication / Plan
-
ok fo rd/c
Assessment/Plan
-
Impression
Hypertensive urgency
Acute headache
Right-sided weakness and numbness
Acute nausea
Primary hypertension
Right carpel tunnel syndrome
History of pre-eclampsia with severe features
History of asthma
Plan
Neurological work-up per primary and neurology.
Renal function normal and at baseline.
Blood pressures have remained mildly elevated in the hospital off BB
pt wants to go back on home dose of BB
recommended to stop BB if SBP<120 consistently
she wants to see Dr Mariel flores d/c
Defer secondary hypertension work-up to as an outpatient.
-
-
Date of Service: May 15, 2025
CC / HPI / ROS
-
Chief Complaint:
HTN
History of Present Illness:
Bp high normal range
no fever
Review of Systems:
no cp or sob
no dizziness
Labs
-
Labs:
WBC 4.6 10^3/uL (4.8-10.8) L 05/14/25 06:34
RBC 4.32 10^6/uL (4.20-5.40) 05/14/25 06:34
Hgb 13.2 g/dL (12.0-16.0) 05/14/25 06:34
Hct 38.4 % (37.0-47.0) 05/14/25 06:34
Plt Count 272 10^3/uL (130-400) 05/14/25 06:34
Sodium 139 mmol/L (135-145) 05/14/25 06:34
Potassium 3.9 mmol/L (3.5-5.1) 05/14/25 06:34
Chloride 108 mmol/L (98-107) H 05/14/25 06:34
Carbon Dioxide 22 mmol/L (22-30) 05/14/25 06:34
BUN 13 mg/dl (7-17) 05/14/25 06:34
Creatinine 0.6 mg/dL (0.6-1.0) 05/14/25 06:34
eGFR > 60.00 05/14/25 06:34
Glucose 95 mg/dl (70-99) 05/14/25 06:34
Calcium 8.9 mg/dl (8.4-10.2) 05/14/25 06:34
Albumin 4.7 g/dl (3.5-5.0) 05/13/25 17:09
Physical Exam
-
Vital Signs:
Vital Signs
Temp Pulse Resp BP Pulse Ox
97.8 F 85 16 132/88 95
05/15/25 15:16 05/15/25 15:16 05/15/25 15:16 05/15/25 15:16 05/15/25 15:16
Cardiovascular:: Regular rate and rhythm
Respiratory:: Bilateral: CTA
Lung Excursion:: Normal
Abdomen:: Nontender and Soft
Extremity Edema:: None: Bilateral:
Eddy Catheter: No
[2025-05-17 08:44] LABS: ANA, IgG Reflex to HEp-2 None Detected (None Detected)
[2025-05-18 01:45] LABS: Serine Protease-3, IgG 0 AU/mL (0-19)
== END 2025-05-15 16:10 | disposition home or self-care (01) | DRG 305 ==
LOC: 4 EAST ACU 21:14
PROVIDERS: Internal Medicine Cardiovascular Disease; ADMITTING PHYSICIAN Student in an Organized Health Care Education/Training Program; ATTENDING PHYSICIAN Hospitalist; CONSULT PHYSICIAN Internal Medicine Cardiovascular Disease; CONSULT PHYSICIAN Psychiatry & Neurology Clinical Neurophysiology; CONSULT PHYSICIAN Specialist; EMERGENCY PHYSICIAN Student in an Organized Health Care Education/Training Program
PROC: B24BZZ4 Ultrasonography of Heart with Aorta, Transesophageal (ICD-10-PCS; 2025-05-15)
DX: I16.1 Hypertensive emergency (principal); Q21.12 Patent foramen ovale; G56.01 Carpal tunnel syndrome, right upper limb
CPT/HCPCS: 70450; 70496; 70498; 70553; 71275; 74177; 80048; 80053; 80061; 81025; 82607; 82728; 82746; 83036; 83516; 83690; 83735; 84443; 84484; 85025; 85027; 85610; 85652; 85730; 86038; 86140; 87040; 92610; 93005; 93312; 93320; 93325; 96374; 96375; 97110; 97163; 97166; 99285; A9575; Q9967